=== PATIENT | male | born 1970 | race Caucasian/White ===

== ENCOUNTER 2016-10-29 17:48 | Emergency (ER) | payer MEDICAID ==
[~2016-10-29] VITALS: Ht 177.8 cm; Wt 76.7 kg
[2016-10-29 17:57] VITALS: BP 119/71
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
[2016-10-29] MEDS ORDERED: CYCLOBENZAPRINE10 MG ORAL (18:27)
[2016-10-29] MEDS ORDERED: IBUPROFEN600 MG ORAL (18:27)
[2016-10-29] MEDS ORDERED: BACITRACIN-P28.35 GM TP (18:27)
[2016-10-29] MEDS ORDERED: Tetanus/Diptheria/Pertussis Vaccine 0.5ml Syr IM ONE (18:30)
[2016-10-29] MEDS ORDERED: Bacitracin Oint UD TOPIC ONE (18:30)
[2016-10-29 18:55] VITALS: BP 119/71
== END 2016-10-29 18:55 | disposition home or self-care (01) ==
LOC: EMR 18:55
DX: M62.830 Muscle spasm of back (principal); S30.810A Abrasion of lower back and pelvis, initial encounter; S20.419A Abrasion of unspecified back wall of thorax, initial encounter; T14.8 Other injury of unspecified body region; Z23 Encounter for immunization; V18.0XXA Pedal cycle driver injured in noncollision transport accident in nontraffic accident, initial encounter; Y92.9 Unspecified place or not applicable
CPT/HCPCS: 90471; 90715; 96372; 99284

== ENCOUNTER 2019-01-06 18:48 | Emergency (ER) | payer MEDICAID ==
[~2019-01-06] VITALS: Ht 172.7 cm; Wt 83.9 kg
[~2019-01-06 18:48] MED LIST: BACITRACIN-P28.35 GM TP; CYCLOBENZAPRINE10 MG ORAL; IBUPROFEN600 MG ORAL
[2019-01-06] MEDS ORDERED: Ketorolac 30mg Inj IV ONE (19:00)
[2019-01-06 19:02] VITALS: BP 138/76
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
--- NOTE | 2019-01-06 19:30 | NUR ---
ED Nurse Note: IV line established. Blood collected and sent to lab.
[2019-01-06 19:49] LABS: BASOPHILS % (AUTO) 1.3 % (0.0-2.0); HEMOGLOBIN 15.8 G/DL (14.2-18.0); LYMPHOCYTES % (AUTO) 31.4 % (20.0-45.0); MEAN CORPUSCULAR VOLUME 84 FL (80-99); MONOCYTES % (AUTO) 6.3 % (1.0-10.0); NEUTROPHILS % (AUTO) 59.9 % (45.0-75.0); PLATELET COUNT 243 K/UL (150-450); RED BLOOD COUNT 5.34 M/UL (4.70-6.10); RED CELL DISTRIBUTION WIDTH 10.7 % (11.6-14.8); WHITE BLOOD COUNT 6.9 K/UL (4.8-10.8)
[2019-01-06 20:07] LABS: ANION GAP 10 mmol/L (5-15); BLOOD UREA NITROGEN 26 mg/dL (7-18); CALCIUM 9.5 MG/DL (8.5-10.1); CARBON DIOXIDE 26 MMOL/L (21-32); CHLORIDE 105 MMOL/L (98-107); POTASSIUM 4.1 MMOL/L (3.5-5.1); SODIUM 141 MMOL/L (136-145)
[2019-01-06 20:11] LABS: ALANINE AMINOTRANSFERASE 21 U/L (12-78); ALBUMIN 3.9 G/DL (3.4-5.0); ALBUMIN/GLOBULIN RATIO 0.9 (1.0-2.7); ALKALINE PHOSPHATASE 101 U/L (46-116); ASPARTATE AMINO TRANSFERASE 15 U/L (15-37); BILIRUBIN,TOTAL 0.7 MG/DL (0.2-1.0); CREATINE KINASE 88 U/L (26-308)
[2019-01-06 20:38] LABS: APPEARANCE,URINE CLEAR; BILIRUBIN, URINE NEGATIVE (NEGATIVE); COLOR,URINE PALE YELLOW; GLUCOSE, URINE (UA) NEGATIVE (NEGATIVE); KETONES,URINE NEGATIVE (NEGATIVE); LEUKOCYTE ESTERASE ,URINE NEGATIVE (NEGATIVE); NITRITE,URINE NEGATIVE (NEGATIVE); PH,URINE 5 (4.5-8.0); PROTEIN,URINE NEGATIVE (NEGATIVE); UROBILINOGEN,URINE NORMAL MG/DL (0.0-1.0)
[2019-01-06] MEDS ORDERED: PEPCID AC20 M2 PO (22:15)
[2019-01-06] MEDS ORDERED: TYLENOL325 MG ORAL (22:15)
[2019-01-06 22:24] VITALS: BP 135/77
--- NOTE | 2019-01-06 22:24 | NUR ---
ED Nurse Note: Pt cleared by ERMD for discharge. DC instructions/prescription was given and explained to pt and verbalized understanding of teachings. All medical deviecs such as ID band and IV line removed. Pt is AAO x4, ambulatory and left with all personal belongings.
== END 2019-01-06 22:24 | disposition home or self-care (01) ==
LOC: EDBD 18:48 → EMR 22:07
DX: M54.9 Dorsalgia, unspecified (principal); R10.13 Epigastric pain; F15.10 Other stimulant abuse, uncomplicated; F31.9 Bipolar disorder, unspecified; F17.200 Nicotine dependence, unspecified, uncomplicated; Z59.0 Homelessness; G89.29 Other chronic pain
CPT/HCPCS: 36415; 80053; 80307; 81003; 82550; 85025; 93005; 96361; 96374; 96375; G0480; G0481; J1885; S0028; Z7502; 99284; J7030